=== PATIENT | male | born 1990 | race Caucasian/White ===

== ENCOUNTER 2021-03-27 13:05 | Emergency (ER) | payer OTHER ==
[~2021-03-27] VITALS: Ht 165.1 cm; Wt 75.0 kg
[2021-03-27] MEDS ORDERED: BACTROBAN TOP (14:48)
[2021-03-27] MEDS ORDERED: KEFLEX500 MG PO (14:48)
[2021-03-27 14:55] VITALS: BP 153/94
== END 2021-03-27 15:05 | disposition home or self-care (01) | DRG 914 ==
LOC: ED 13:05
PROC: 0HQFXZZ Repair Right Hand Skin, External Approach (ICD-10-PCS; principal; 2021-03-27)
DX: S61.421A Laceration with foreign body of right hand, initial encounter (principal); S80.212A Abrasion, left knee, initial encounter; S80.211A Abrasion, right knee, initial encounter; W11.XXXA Fall on and from ladder, initial encounter; Y92.89 Other specified places as the place of occurrence of the external cause; Y99.0 Civilian activity done for income or pay

== ENCOUNTER 2021-04-05 11:59 | Emergency (ER) | payer OTHER ==
[~2021-04-05] VITALS: Ht 165.1 cm; Wt 80.0 kg
[~2021-04-05 11:59] MED LIST: BACTROBAN TOP; KEFLEX500 MG PO
[2021-04-05 12:35] VITALS: BP 116/66
== END 2021-04-05 12:39 | disposition home or self-care (01) | DRG 950 ==
LOC: ED 11:59
DX: S61.411D Laceration without foreign body of right hand, subsequent encounter (principal); X58.XXXD Exposure to other specified factors, subsequent encounter